=== PATIENT | female | born 2005 | race African-American/Black ===

== ENCOUNTER 2023-10-08 08:32 | Emergency (ER) | payer MEDICAID ==
[~2023-10-08] VITALS: Ht 167.6 cm; Wt 77.3 kg
[2023-10-08 08:43] VITALS: TEMP 97.6
[2023-10-08] MEDS: POVIDONE-IODINE 10% 15 ML SOLUTION UD TP ONE (12:04)
[2023-10-08] MEDS: CEPHALEXIN MONOHYDRATE 500 MG CAPSULE PO ONE (13:55)
[2023-10-08] MEDS: IBUPROFEN 600 MG TABLET PO ONE (13:55)
[2023-10-08] MEDS ORDERED: SULF-261 PO (14:07)
[2023-10-08] MEDS ORDERED: IBUP-1492 PO (14:07)
[2023-10-08] MEDS ORDERED: CEPH-558 PO (14:07)
[2023-10-08 14:15] VITALS: BP 115/67; PULSE 75; RESP 18; O2SAT 98
== END 2023-10-08 14:33 | disposition home or self-care (01) ==
LOC: EMS 08:32
DX: L02.415 Cutaneous abscess of right lower limb (principal)
CPT/HCPCS: 99283; 10060; A4247

== ENCOUNTER 2024-02-13 18:45 | Emergency (ER) | payer MEDICAID, OTHER ==
[~2024-02-13] VITALS: Ht 165.1 cm; Wt 72.7 kg
[~2024-02-13 18:45] MED LIST: CEPH-558 PO; IBUP-1492 PO; SULF-261 PO
[2024-02-13 18:48] VITALS: BP 127/69; PULSE 88; RESP 18; TEMP 97.9; O2SAT 99
[2024-02-13] MEDS ORDERED: METR500 PO (23:24)
[2024-02-13] MEDS: LIDOCAINE/PF 1% 2 ML VIAL IM ONE (23:27)
[2024-02-13] MEDS: AZITHROMYCIN 500 MG TABLET PO ONE (23:28)
[2024-02-13] MEDS: CefTRIAXone SODIUM 1 GM/VIAL IM ONE (23:28)
== END 2024-02-13 23:42 | disposition home or self-care (01) ==
LOC: EMS 18:45
DX: N76.0 Acute vaginitis (principal)
CPT/HCPCS: 99283; 84703; 96372; J0456; J0696; J3490